=== PATIENT | male | born 1950 | race Caucasian/White ===

== ENCOUNTER → 2020-10-03 | Outpatient (CLI) | payer MEDICARE, BC ==
[~2020-10-03] MED LIST: ASPIRIN 81M81 MG/TA2 PO; FLOMAX 0.40.4 MG/CAP PO; MOTRIN 800800 MG/TAB PO; PERCOCET 325 MG1 TA2 PO; PYRIDIUM 100MG100 MG PO; SENOKOT8.6 MG PO
== END ==
LOC: COL.RAD 08:11
DX: Z87.891 Personal history of nicotine dependence (principal)

== ENCOUNTER → 2022-11-05 | Outpatient (CLI) | payer MEDICARE, BC | LOC: COL.RAD 07:03 | DX: I25.10 Atherosclerotic heart disease of native coronary artery without angina pectoris (principal) ==

== ENCOUNTER 2024-01-29 08:39 | Emergency (ER) | payer MEDICARE, BC ==
[~2024-01-29] VITALS: Ht 193 cm; Wt 100.0 kg
[2024-01-29 08:45] VITALS: TEMP 98.6
[2024-01-29] MEDS ORDERED: Ondansetron 4 MG/2 ML VIAL IV ONE (09:00)
[2024-01-29] MEDS ORDERED: NS 1,000 ML IV ONE (09:00)
[2024-01-29] MEDS ORDERED: fentaNYL 50 MCG/ML 2 ML VIAL IV ONE (09:00)
[2024-01-29 09:20] LABS: BASO # 0.1 K/mm3 (0.0-0.2); BASO % 0.5 % (0.0-2.0); EOS # 0.1 K/mm3 (0.0-0.7); EOS % 0.5 % (0.0-4.0); GRAN # 11.3 K/mm3 (1.4-6.5); GRAN % 78.6 % (42.2-75.2); HEMATOCRIT 44.8 % (42.0-52.0); HEMOGLOBIN 15.1 g/dl (13.5-18.0); LYMPH # 1.7 K/mm3 (1.2-3.4); LYMPH % 11.5 % (20.0-51.0); MEAN CELL VOLUME 87 fl (80.0-100.0); MEAN CORPUSCULAR HEMOGLOBIN 29 pg (27-31); MEAN CORPUSCULAR HGB CONC 34 g/dl (33.0-37.0); MEAN PLATELET VOLUME 9.2 fl (7.4-10.4); MONO # 1.2 K/mm3 (0.1-0.6); MONO % 8.6 % (1.7-9.3); PLATELET COUNT 255 K/mm3 (130-400); RED BLOOD COUNT 5.14 M/mm3 (4.20-5.60); REDCELL DISTRIBUTION WIDTH-CV 12.5 % (11.5-14.5)
[2024-01-29 09:35] LABS: ALBUMIN 3.7 g/dL (3.4-4.8); BILIRUBIN,TOTAL 0.8 mg/dL (0.2-1.2); C-REACTIVE PROTEIN 0.55 mg/dL (0.00-0.50); CALCIUM 9.5 mg/dL (8.4-10.2); CREATININE, serum 1.07 mg/dL (0.72-1.25); POTASSIUM 4.4 mEq/L (3.5-4.5); TOTAL PROTEIN 7.3 g/dl (6.2-8.1)
[2024-01-29] MEDS ORDERED: Iohexol 300 - 100 ML VIAL IV ONE (09:59)
[2024-01-29] MEDS ORDERED: NS 100 ML IV SCH (10:01)
[2024-01-29] MEDS ORDERED: levoFLOXacin 500 MG TAB PO ONE (11:00)
[2024-01-29 11:07] LABS: COLLECTION METHOD CLEAN CATCH
[2024-01-29 11:16] LABS: PH 5.5 (5.0-8.5); URINE APPEARANCE CLEAR (CLEAR/HAZY); URINE BLOOD 1+ (NEGATIVE); URINE COLOR YELLOW (YELLOW); URINE GLUCOSE NEGATIVE (NEGATIVE); URINE KETONE NEGATIVE (NEGATIVE); URINE NITRATE NEGATIVE (NEGATIVE); URINE PROTEIN(semi-quant) 1+ (NEGATIVE); URINE UROBILINOGEN 0.2 E.U/dL (0.2-1.0)
[2024-01-29] MEDS ORDERED: NORCO 325 MG-51 TAB PO (11:16)
[2024-01-29] MEDS ORDERED: LEVAQUIN 5500 MG/TA1 PO (11:16)
[2024-01-29 11:25] VITALS: BP 145/88; PULSE 89
== END 2024-01-29 11:25 | disposition home or self-care (01) ==
LOC: COL.ER 08:39
PROVIDERS: Emergency Medicine
DX: N28.1 Cyst of kidney, acquired (principal); R11.0 Nausea; Z90.49 Acquired absence of other specified parts of digestive tract; Z90.89 Acquired absence of other organs; Z87.442 Personal history of urinary calculi
CPT/HCPCS: J2405; J3010; J7030; Q9967

== ENCOUNTER 2024-03-07 06:56 | Day surgery (SDC) | payer MEDICARE, BC ==
[~2024-03-07] VITALS: Ht 190.5 cm; Wt 95.7 kg
[2024-03-07] VITALS (7 sets, daily range): BP systolic 121–141; BP diastolic 69–83; PULSE 60–72; TEMP 97.3–97.9
[~2024-03-07 06:56] MED LIST changes: +LEVAQUIN 5500 MG/TA1 PO; +NORCO 325 MG-51 TAB PO; +fentaNYL 50 MCG/ML 2 ML VIAL ONE
[2024-03-07] MEDS ORDERED: Ondansetron 4 MG/2 ML VIAL IV PRN ×2 (07:15→08:45)
[2024-03-07] MEDS ORDERED: HYDROmorphone 1 MG/1 ML SYRINGE [PACU/SDC ONLY] IV PRN (07:15)
[2024-03-07] MEDS ORDERED: BUPivacaine PF 0.5% w EPI (1:200,000) 10 ML VIAL IJ ONE ×2 (07:47)
[2024-03-07] MEDS ORDERED: Morphine 4 MG/ML VIAL IV PRN (08:45)
[2024-03-07] MEDS ORDERED: NORCO 325 MG-51 TAB PO (08:51)
--- NOTE | 2024-03-07 10:25 | NUR ---
0839 RETURNS TO ROOM 3 PER CART FROM OR. AWAKE, ALERT HOB ELEVATED 40 DEGREES. RESP UNLBORED. VITAL SIGNS OBTAINED. ABD SOFT. DRESSING LEFT LOWER QUEDRANT CLEAN DRY AND INTACT. REPORTS MILD DISCOMFORT. CALL LIGHT AT SIDE. IN ROOM 0855 AWAKE, ALERT. CONVERSES WITH WIFR 0910 TOLERATES PO JUICE WITHOUT NAUSEA 0925 DOZES 0940 AWAKE, ALERT, TOLERATES PO JUICE AND PUDDING WITHOUT NAUSEA 0954 PO PAIN MED GIVEN PER PATIENT REQUEST. RATES PAIN 01/04 1005 AWAKE, ALERT. DISCHARGE INSTRUCTIONS REVIEWED. PATIENT VERBALIZES UNDERSTANDING. COPY PROVIDED IN DISCHARGE FOLDER 1015 SITS ON EDGE OF CART. DRESSES WITH ASSIST FROM
== END 2024-03-07 10:25 | disposition home or self-care (01) ==
LOC: SDCO 06:56
DX: K40.90 Unilateral inguinal hernia, without obstruction or gangrene, not specified as recurrent (principal); K59.09 Other constipation; Z79.899 Other long term (current) drug therapy; Z87.891 Personal history of nicotine dependence
CPT/HCPCS: C1781; J0690; J2704; J3010